=== PATIENT | female | born 1950 | race Caucasian/White ===

== ENCOUNTER → 2016-12-13 | Outpatient (CLI) | payer BC ==
--- NOTE | ~2016-12-13 | US128 ---
[id number] [facility] [address] [place], [place] [address] [id number] O MR#: [id number] Acc #: [id number] NAME: KRISTIN MUJICA : 1950 SEX: F STUDY DATE/TIME: 12/13/2016 10:46 [facility]IT[facility] ROOM: STUDY DESCRIPTION: Thyroid Attending Physician: Rosie Jeronimo Aprn Referring Physician: Rosie Jeronimo Aprn Ordering Physician: Physician Non-Staff Primary Care Physician: Magnolia Akhtar MEDICAL IMAGING REPORT This report is preliminary unless electronic signature is present EXAM Thyroid ultrasound 12/13/2016 COMPARISON None. HISTORY Thyroid nodule. FINDINGS No prior images are provided for comparison. There is a report from an outside hospital. Questionable nodule measured posteriorly in the mid portion of the right lobe of the gland at 1.2 x 1.5 x 0.9 cm but it may be more artifact than actual nodule. A second questionable nodule imaged at the upper pole of the right lobe of the gland at 9 x 10 x 7 mm. On the left, there is a hypoechoic possible nodule on the posterior border of the gland that is 6 x 7 x 6 mm. IMPRESSION 1. 3 nodules or possible nodules are measured. The largest possible nodule here is measured at 1.2 x 1.5 x 0.9 cm though it is not convincing that this is an accurate measurement or even a discrete nodule. The other 2 nodules are 1 cm or slightly less in size. 2. It is unclear what was imaged on the prior exam though no right lobe nodules were recorded at least in the report of the [facility] exam from September 2015. 3. If there is indeed truly a new 1.5 cm nodule in the right lobe of the gland, tissue sampling would be recommended. Again, this may simply be artifact. The patient could be scheduled for biopsy and the Radiologist could determine at the time of that whether or not there was in fact a nodule and therefore an indication for biopsy. Dictated by... Dieudonne Mendez M.D. THIS IS AN ELECTRONICALLY VERIFIED REPORT Dieudonne Mendez M.D. at 12/16/2016 5:03 PM ANAM/mjs TD: 12/16/2016 13:34 JOB #: [id number] MEDICAL IMAGING REPORT COPY
--- NOTE | ~2016-12-13 | US24 ---
[facility] A Service of [facility] RADIOLOGY TEXT RESULTS PATIENT: KRISTIN MUJICA LOCATION: [facility] : 52 UNIT #: [id number] AGE: [address]: RAMIRO WALKER APRN SEX: F ORDER DR: [id number] [facility] [address] [place], [place] [address] [id number] O MR#: [id number] Acc #: [id number] NAME: KRISTIN MUJICA. : 1950 SEX: F STUDY DATE/TIME: 12/13/2016 10:59 UNIT: [facility] ROOM: STUDY DESCRIPTION: US Breast Unilateral Attending Physician: Ramiro Walker Aprn Referring Physician: Ramiro Walker Aprn Ordering Physician: Physician Non-Staff Primary Care Physician: Magnolia Akhtar MEDICAL IMAGING REPORT This report is preliminary unless electronic signature is present EXAM Right breast ultrasound COMPARISON Mammograms dated September 05, 2016 July 25, 2015 November 22, 2013, November 12, 2013. HISTORY 66-year-old female with 2 enlarging masses on screening mammography immediately adjacent to each other in the central anterior third. Additional imaging with ultrasound was recommended. FINDINGS In the subareolar right breast there is a large simple cyst measuring 2.7 cm x 2.5 cm x 1.6 cm, corresponding in size and location to the largest developing mammographic mass. Immediately anterior and slightly superior to this is a separate round hypoechoic circumscribed complicated cyst versus solid mass measuring 6 mm x 5 mm x 6 mm. This does not definitely have a mammographic correlate. The 2 adjacent suspected developing masses on mammography actually correspond to the single large simple cyst seen on sonography. IMPRESSION 2 adjacent masses on mammography appear to correspond to 1 large lobular simple cyst. However, immediately adjacent to this large simple cyst on sonography is a 6 mm x 6 mm x 5 mm complicated cyst versus solid mass which appears too small to represent the suspected smaller mammographic mass which would seem to indicate that the 2 suspected masses actually reflect 1 lobular large cyst. Ultrasound-guided aspiration of the large cyst as well as ultrasound-guided aspiration of the 6 mm solid mass versus complicated cyst is recommended to ensure that the enlarging mammographic masses are definitely evaluated. If the complicated cyst versus solid mass does not resolve with aspiration an ultrasound-guided biopsy would be STS. [facility] A Service of [facility] RADIOLOGY TEXT RESULTS PATIENT: KRISTIN MUJICA LOCATION: [facility] : 52 UNIT #: [id number] AGE: [address]: RAMIRO WALKER APRN SEX: F ORDER DR: indicated. Findings and recommendations were discussed with the patient on termination of today's exam. In addition, our generation engineering technologist has notified the patient's physician of these findings and recommendations for ultrasound-guided biopsy. BIRADS: 4 - Suspicious abnormality. Biopsy should be considered. Dictated by... Pollo Ortiz M.D. THIS IS AN ELECTRONICALLY VERIFIED REPORT Pollo Ortiz M.D. at 12/15/2016 7:02 PM Petra TD: 12/14/2016 12:28 JOB #: [id number] MEDICAL IMAGING REPORT COPY
== END | disposition home or self-care (01) ==
LOC: CWCC 09:20
DX: E04.1 Nontoxic single thyroid nodule (principal); R92.8 Other abnormal and inconclusive findings on diagnostic imaging of breast; N60.01 Solitary cyst of right breast
CPT/HCPCS: 36415; 76536; 76641; 84443; 86376

== ENCOUNTER → 2016-12-18 | Outpatient (CLI) | payer BC ==
--- NOTE | ~2016-12-18 | US200 ---
[facility] A Service of [facility] RADIOLOGY TEXT RESULTS PATIENT: KRISTIN MUJICA LOCATION: [facility] : 54 UNIT #: [id number] AGE: [address]: RAMIRO WALKER APRN SEX: F ORDER DR: [id number] [id number] [facility] [place], [place] [address] [id number] O MR#: [id number] Acc #: [id number] NAME: KRISTIN MUJICA. : 1950 SEX: F STUDY DATE/TIME: 12/18/2016 14:15 UNIT: [facility] ROOM: STUDY DESCRIPTION: US Breast Guided Bx 1st Lesion Attending Physician: Ramiro Walker Aprn Ordering Physician: Physician Non-Staff Primary Care Physician: Magnolia Akhtar MEDICAL IMAGING REPORT This report is preliminary unless electronic signature is present REVISED REPORT SEE ADDENDUM XAM Ultrasound-guided core biopsy of a right breast nodule, ultrasound-guided cyst aspiration of a right breast cyst and ultrasound-guided clip placement procedure 12/18/2016 INDICATION Abnormal mammogram performed 09/05/2016. Abnormal ultrasound 12/13/2016. FINDINGS The patient's prior imaging studies were reviewed. Survey images here in the department confirm the presence of the solid nodule and the adjacent cyst in the 12 o'clock position right breast. They were adequately visualized to proceed. Procedure and risks were explained to the patient. Risks included but not limited to bleeding, infection, and damage to adjacent structures. The patient gave both oral and written consent to proceed and the consent form was signed and on the chart prior to the procedure. Prior to the procedure, a "time-out" protocol was also followed to confirm patient identity and procedure details. The right breast was prepped and draped in the usual sterile fashion. Maximum sterile-barrier technique appropriate for procedure guidelines was utilized. This included the use of sterile gloves, sterile instruments, sterile barriers. Initially, attention was turned to the small solid nodule at 12 o'clock measuring up to about 5 mm. Local anesthesia was achieved with about 5 mL of a buffered 1% lidocaine solution. A small dermatotomy was performed. Thereafter, using ultrasound guidance, a 14-gauge core biopsy device was advanced to the margin of the nodule. Appropriate needle location was documented with ultrasound throughout and images demonstrating appropriate needle placement were saved to the PACS system. A total of 4 core specimens were obtained from the nodule. Some [facility] A Service of [facility] RADIOLOGY TEXT RESULTS PATIENT: KRISTIN MUJICA LOCATION: [facility] : 54 UNIT #: [id number] AGE: [address]: RAMIRO WALKER APRN SEX: F ORDER DR: of the specimens were fragmented, requiring a fourth pass. These were placed in a formalin solution. Thereafter, using the same skin entrance site, an echogenic metallic biopsy clip introducer was advanced to the margin of the nodule. Appropriate needle location was documented with ultrasound throughout with images demonstrating appropriate needle placement saved to the PACS system. The biopsy clip was deployed within the nodule and seen to be in good position on ultrasound. Subsequent clip placement mammogram also demonstrated appropriate clip placement within the nodule. Next, attention was turned to the dominant cyst at 12 o'clock. Using the same skin entrance site, an 18-gauge spinal needle was advanced to the margin of the cyst. Appropriate needle location was documented with ultrasound throughout and images demonstrating appropriate needle placement were saved to the PACS system. The needle was placed into the cyst and there was prompt return of thin, reddish to purple fluid. About 3 mL was removed. No additional fluid could be aspirated from the cyst. A small pocket of fluid and debris remained which was not amenable to further aspiration. At this point, the needle was removed. The skin entrance site was bandaged with a sterile Band-Aid. The patient tolerated the procedure well. There were no immediate post procedure complications. The subsequent clip placement mammogram also demonstrated an interval decrease in size of the dominant cyst at 12 o'clock, just posterior to the clip associated with the solid nodule adjacent to the previously demonstrated cyst. Imaging findings between ultrasound and mammography are concordant. The fluid from the cyst was sent to the lab for analysis including cytology. Please see the final cytology and pathology reports for further details. IMPRESSION 1. Successful ultrasound-guided core biopsy of a solid nodule measuring 5 mm in the 12 o'clock position right breast. No immediate post procedure complications. Pathology results are pending. 2. Successful ultrasound-guided clip placement within the nodule confirmed with ultrasound and a clip placement mammogram, confirming appropriate tissue sampling on both modalities. 3. Successful ultrasound-guided cyst aspiration of a dominant complicated cyst at 12 o'clock. The majority of the fluid was evacuated (3 mL). A scant amount of residual fluid and debris remained at the aspiration site. The fluid has been sent for analysis in the lab including cytology. Please see the cytology report for further details. 4. Pathology and cytology results pending. Please see those reports for additional details. BIRADS: 4 Suspicious abnormality - Biopsy should be considered Dictated by... Rommel Chaudhary M.D. [facility] A Service of [facility] RADIOLOGY TEXT RESULTS PATIENT: KRISTIN MUJICA LOCATION: [facility] : 54 UNIT #: [id number] AGE: [address]: RAMIRO WALKER CAR DELIVERER SEX: F ORDER DR: THIS IS AN ELECTRONICALLY VERIFIED REPORT Rommel Chaudhary M.D. at 12/19/2016 10:16 AM Linda TD: 12/19/2016 07:49 JOB #: [id number] ADDENDUM Pathology results for the core biopsy of the right breast nodule demonstrates segments of benign breast parenchyma and portions of a cyst wall. No malignancy identified. Although the nodule appeared solid on ultrasound imaging, the differential does also include the possibility of a complicated cyst. Based on the benign biopsy results, a followup ultrasound of the right breast in 6 months is recommended for reassessment of imaging stability. Dictated by... Rommel Chaudhary M.D. THIS IS AN ELECTRONICALLY VERIFIED REPORT Rommel Chaudhary M.D. at 01/06/2017 9:13 AM Re TD: 01/03/2017 09:21 JOB #: [id number] CC: Sovera/invision Please Delete MEDICAL IMAGING REPORT Page 1 of 1 COPY
--- NOTE | ~2016-12-18 | MY14 ---
[facility] A Service of [facility] RADIOLOGY TEXT RESULTS PATIENT: KRISTIN MUJICA LOCATION: [facility] : 54 UNIT #: [id number] AGE: [address]: RAMIRO WALKER APRN SEX: F ORDER DR: [id number] [facility]. [place], [place] [address] [id number] O MR#: [id number] Acc #: [id number] NAME: KRISTIN MUJICA : 1950 SEX: F STUDY DATE/TIME: 12/18/2016 15:11 UNIT: [facility] ROOM: STUDY DESCRIPTION: MY Post Bx Film Attending Physician: Ramiro Walker Aprn Ordering Physician: Physician Non-Staff Primary Care Physician: Magnolia Akhtar MEDICAL IMAGING REPORT This report is preliminary unless electronic signature is present EXAM Clip placement mammogram , 12/18/2016 INDICATION Status post ultrasound-guided cyst aspiration and core biopsy procedures on the right. TECHNIQUE CC and true lateral views of the right breast were obtained and reviewed with an FDA-approved CAD device. COMPARISON 09/05/2016, 07/25/2015 FINDINGS The biopsy clip is embedded within the smaller nodular density associated with the bilobed density in the 12 o'clock position right breast. This confirms appropriate tissue sampling of the smaller solid nodule under ultrasound. The larger density posterior to the clip associated with a cyst is less well defined and smaller mammographically, concordant with ultrasound findings demonstrating near complete resolution of the cyst. It had some complicated features on ultrasound and it could not be completely aspirated to resolution. There are benign calcifications in the right breast. Please see the separately dictated ultrasound-guided cyst aspiration and core biopsy report for further details. Cytology results and pathology results are pending for both lesions. Please see that report for further details as well. IMPRESSION 1. Clip placement mammogram demonstrates appropriate clip placement within the solid nodule in the 12 o'clock position right breast. This is positioned anterior to the dominant cyst on both projections [facility] A Service [facility] RADIOLOGY TEXT RESULTS PATIENT: KRISTIN MUJICA LOCATION: [facility] #: [id number] : 54 UNIT #: [id number] AGE: [address]: RAMIRO WALKER APRN SEX: F ORDER DR: and concordant with ultrasound imaging same date. 2. Interval decrease in size of a dominant cyst at 12 o'clock, also concordant with ultrasound imaging same date. 3. Please see the separately dictated ultrasound-guided cyst aspiration and core biopsy report for further details. Cytology and pathology results are pending. BIRADS: 4 Suspicious abnormality; biopsy should be considered. Dictated by... Rommel Chaudhary M.D. THIS IS AN ELECTRONICALLY VERIFIED REPORT Rommel Chaudhary M.D. at 12/19/2016 10:16 AM ADAM/alivia TD: 12/19/2016 01:27 JOB #: [id number] MEDICAL IMAGING REPORT COPY
--- NOTE | ~2016-12-18 | US19 ---
[facility] A Service of [facility] RADIOLOGY TEXT RESULTS PATIENT: KRISTIN MUJICA LOCATION: [facility] : 54 UNIT #: [id number] AGE: [address]: RAMIRO WALKER APRN SEX: F ORDER DR: [id number] [facility] [address] [place], [place] [address] [id number] O MR#: [id number] Acc #: [id number] NAME: KRISTIN MUJICA : 1950 SEX: F STUDY DATE/TIME: 12/18/2016 14:15 UNIT: [facility] ROOM: STUDY DESCRIPTION: US Breast Cyst Aspiiration W I Attending Physician: Ramiro Walker Aprn Ordering Physician: Physician Non-Staff Primary Care Physician: Magnolia Akhtar MEDICAL IMAGING REPORT This report is preliminary unless electronic signature is present EXAM Ultrasound breast cyst aspiration with imaging FINDINGS Please see Ultrasound breast biopsy 1st lesion for results. Dictated by... Rommel Chaudhary M.D. THIS IS AN ELECTRONICALLY VERIFIED REPORT Rommel Chaudhary M.D. at 12/19/2016 10:17 AM Linda TD: 12/19/2016 08:06 JOB #: [id number] MEDICAL IMAGING REPORT COPY
== END | disposition home or self-care (01) ==
LOC: CWCC 13:43
DX: N60.01 Solitary cyst of right breast (principal); N63 Unspecified lump in breast
CPT/HCPCS: 88108; 88305; G0204